=== PATIENT | female | born 1985 | race Asian ===

== ENCOUNTER 2021-08-02 07:13 | Day surgery (SDC) | payer OTHER ==
[~2021-08-02] VITALS: Ht 165.1 cm; Wt 75.7 kg
[~2021-08-02 07:13] MED LIST: ACETAMINOPHEN 650 MG SUPP PR ONE; NS 1,000 ML IV SCH
[2021-08-02] MEDS ORDERED: LR 1,000 ML IV SCH ×2 (07:30→11:10)
[2021-08-02 08:01] LABS: HEMATOCRIT 43.7 % (36.0-47.0); HEMOGLOBIN 14.3 g/dl (12.0-15.5); MEAN CORPUSCULAR HEMOGLOBIN 28.9 pg (27.0-33.0); MEAN CORPUSCULAR HGB CONC 32.7 g/dl (32.0-36.5); MEAN CORPUSCULAR VOLUME 88.3 fl (80.0-96.0); PLATELET COUNT, AUTOMATED 265 10^3/uL (150-450); RED BLOOD COUNT 4.95 10^6/uL (4.00-5.40); WHITE BLOOD COUNT 7.9 10^3/uL (4.0-10.0)
[2021-08-02 08:30] LABS: BLOOD UREA NITROGEN 10 MG/DL (7-18); CALCIUM LEVEL 9.5 MG/DL (8.5-10.1); CARBON DIOXIDE LEVEL 30 MEQ/L (21-32); CHLORIDE LEVEL 107 MEQ/L (98-107); CREATININE FOR GFR 0.82 MG/DL (0.55-1.30); GLOMERULAR FILTRATION RATE > 60.0 (>60); GLUCOSE, FASTING 89 MG/DL (70-100); HCG, SERUM QUANTITATIVE < 1.0 MIU/ML; POTASSIUM SERUM 3.9 MEQ/L (3.5-5.1); SODIUM LEVEL 140 MEQ/L (136-145)
[2021-08-02] MEDS ORDERED: MIDAZOLAM INJ 2MG/2ML VIAL (J2250 PER 1MG) As Ordered ONE (08:47)
[2021-08-02] MEDS ORDERED: fentaNYL 100 MCG/2 ML INJECTION As Ordered ONE (08:48)
[2021-08-02] MEDS ORDERED: ACETAMINOPHEN 650 MG SUPP As Ordered ONE (09:14)
[2021-08-02] MEDS ORDERED: BUPIVACAINE HCL 0.5% 30ML VIAL As Ordered ONE (09:14)
[2021-08-02] MEDS ORDERED: ONDANSETRON 4MG/2ML VIAL As Ordered ONE (09:49)
[2021-08-02] MEDS ORDERED: ROCURONIUM BROMIDE 50 MG/5 ML VIAL As Ordered ONE (09:49)
[2021-08-02] MEDS ORDERED: dexameTHASONE 4 MG/ML 1ML VIAL (J1100 PER 1MG) As Ordered ONE (09:49)
[2021-08-02] MEDS ORDERED: propofoL 200 MG/20 ML VIAL As Ordered ONE (09:49)
[2021-08-02] MEDS ORDERED: LIDOCAINE 2% 100MG/5ML SDV (FOR ANES.) As Ordered ONE (09:49)
[2021-08-02] MEDS ORDERED: GLYCOPYRROLATE INJ 0.2 MG/ML 2 ML VIAL As Ordered ONE (09:51)
[2021-08-02] MEDS ORDERED: SUGAMMADEX SODIUM 500 MG/5 ML VIAL (BRIDION) As Ordered ONE (10:01)
[2021-08-02] MEDS ORDERED: KETOROLAC 60MG 2ML VIAL As Ordered ONE (10:01)
[2021-08-02] MEDS ORDERED: ONDANSETRON 4MG/2ML VIAL IV PRN (11:10)
[2021-08-02] MEDS ORDERED: MORPHINE 2 MG/ML 1ML VIAL IV PRN (11:10)
[2021-08-02] MEDS ORDERED: fentaNYL 100 MCG/2 ML INJECTION IV PRN (11:10)
[2021-08-02] MEDS: oxyCODONE 5MG TAB PO PRN ×2 (11:48→12:22)
[2021-08-02 12:54] LABS: GC DNA AMPLIFICATION NEGATIVE (NEGATIVE)
[2021-08-02 14:50] VITALS: BP 125/75
== END 2021-08-02 15:00 | disposition home or self-care (01) ==
LOC: M SDC 07:13
PROVIDERS: ATTEND Obstetrics & Gynecology
DX: Z30.2 Encounter for sterilization (principal); N83.209 Unspecified ovarian cyst, unspecified side; N73.6 Female pelvic peritoneal adhesions (postinfective); Z88.1 Allergy status to other antibiotic agents
CPT/HCPCS: 36415; 58301; 58558; 58661; 80048; 84702; 85027; 87810; 87850; 88300; 88302; J1100; J1885; J2250; J2405; J3010